=== PATIENT | male | born 1960 | race Caucasian/White ===

== ENCOUNTER → 2016-06-12 | Outpatient (CLI) | payer BC ==
--- NOTE | 2016-06-12 10:44 | CT ---
EXAMINATION TYPE: CT ChestAbdPelvis w con DATE OF EXAM: 06/12/2016 9:15 AM COMPARISON: CT CAP December 13, 2015 HISTORY: Patient has no complaints at time of service. Follow up study for known renal CA. CT DLP: 2014 mGycm. Automated Exposure Control for Dose Reduction was Utilized. CONTRAST: CT scan of the thorax, abdomen and pelvis is performed with oral and with IV Contrast, patient inject ed with 100 mL of Omnipaque 300. FINDINGS: LUNGS: There is a cluster of ill-defined nodular opacities in the right lower lobe seen best on axial images 33 through 42. Consider infectious process, atypical infection is in differential. Left lung remains clear. Some scattered micronodules are redemonstrated bilaterally including predominantly ca lcified nodules near axial image 30 and 31 in the right lung anteriorly. There is no pleural effusion or pneumothorax seen. The tracheobronchial tree is patent. MEDIASTINUM: There are no greater than 1 cm hilar or mediastinal lymph nodes. There are prominent but subcentimeter thoracic lymph nodes redemonstrated. No cardiomegaly is present. There is tiny pericar dial effusion anteriorly and inferiorly redemonstrated. Some coronary artery calcification in the LA D is seen. OTHER: No additional significant abnormality is seen. LIVER/GB: No significant abnormality is appreciated. PANCREAS: No significant abnormality is seen. SPLEEN: No significant abnormality is seen. ADRENALS: No significant abnormality is seen. KIDNEYS: No significant abnormality is seen. BOWEL: Oral contrast only reaches level of the mid ileum. There is distal colectomy with left lower q uadrant colostomy redemonstrated. Small fat-containing parastomal hernia remains present. Normal-appe aring appendix is seen from cecum. GENITAL ORGANS: No gross abnormality seen. LYMPH NODES: No greater than 1cm abdominal or pelvic lymph nodes are appreciated. OSSEOUS STRUCTURES: Multilevel spurring in thoracic spine is again seen. OTHER: There is persistent small to moderate sized fat-containing left inguinal hernia. IMPRESSION: 1. New area of ill-defined nodular opacities right lower lobe is present, consider acute infectious p rocess including atypical infections. Clinical correlation advised. Otherwise no significant new find ing is seen from prior exam. No obvious new mass or adenopathy is seen to suggest neoplastic recurren ce.
== END | disposition home or self-care (01) ==
LOC: RADCTMAIN 08:48
PROVIDERS: ATTEND Internal Medicine Hematology & Oncology
DX: C20 Malignant neoplasm of rectum (principal); R91.8 Other nonspecific abnormal finding of lung field
CPT/HCPCS: 71260; 74177; Q9967

== ENCOUNTER → 2016-12-11 | Outpatient (CLI) | payer BC ==
--- NOTE | 2016-12-11 16:49 | CT ---
EXAMINATION TYPE: CT ChestAbdPelvis w con DATE OF EXAM: 12/11/2016 COMPARISON: 06/12/2016 HISTORY: Patient has no complaints at time of service. Follow up study for known rectal CA. CT DLP: 1895 mGycm Automated exposure control for dose reduction was used. CONTRAST: CT scan of the chest, abdomen and pelvis is performed with Oral Contrast and with IV Contrast, patien t injected with 100 mL of Omnipaque 300. FINDINGS: The lungs are clear of infiltrate. There is no evidence of a pulmonary mass. There are small calcifie d granulomata in both lungs. There is no pleural effusion. There is no mediastinal adenopathy. There are no hilar masses. There is mild ectasia of the ascending aorta measures 3.6 cm. There is no eviden ce of dissection. There is no pericardial effusion. There is no pleural effusion. Liver spleen pancreas appear normal. Gallbladder appears normal. Bile ducts are not dilated. There is no adrenal mass. Kidneys show satisfactory contrast opacification. There is no hydronephrosis. Appen faviola appears normal. There is a colostomy in the left mid abdomen. There is a parastomal hernia that c ontains omental fat. This measures 3 cm. I see no intestinal wall thickening. There are no dilated lo ops. There is no ascites. Bladder distends smoothly. There is no pelvic mass. I see no bony destructive process. IMPRESSION: There is mild 3 cm parastomal hernia that contains fat. Sigmoid colostomy. No evidence of recurrent tumor. No adverse change compared to old exam. There is clearing of is minimal infiltrate in the left upper lobe compared to old exam.
== END | disposition home or self-care (01) ==
LOC: RADCTMAIN 15:54
PROVIDERS: ATTEND Internal Medicine Hematology & Oncology
DX: C20 Malignant neoplasm of rectum (principal); K43.5 Parastomal hernia without obstruction or gangrene
CPT/HCPCS: 71260; 74177; Q9967

== ENCOUNTER 2017-06-11 07:27 | Day surgery (SDC) | payer BC ==
[2017-06-07 11:20] VITALS: BMI 29.6
[~2017-06-11 07:27] MED LIST: LACTATED RINGERS 1,000 ML IV SCH
[2017-06-11 07:50] VITALS: RESP 16; TEMP 98.4
[2017-06-11] MEDS ORDERED: LIDOCAINE 1% 20 ML VIAL (10MG/ML) FOR IV START INTRADERMA ONE (07:53)
[2017-06-11 07:56] LABS: Glucose,Whole Blood 126 mg/dL (75-99)
[2017-06-11] MEDS ORDERED: PROPOFOL 10 MG/ML 20 ML VIAL IV ONE (08:25)
[2017-06-11] MEDS ORDERED: LIDOCAINE 1% INJ 10MG/ML (20 ML MDV) ONE (08:25)
[2017-06-11 09:06] VITALS: BP 116/72; PULSE 80
--- NOTE | 2017-06-11 09:11 | P.PCN ---
Date of Procedure: 06/11/17 Procedure(s) Performed: Procedure: Colonoscopy through colostomy site and polypectomy. Preoperative diagnosis: History of rectal cancer and history of polyps. Postoperative diagnosis: Sigmoid polyp snared but no other polyps or cancer. Preparation: HalfLytely prep. Sedation: Was provided by anesthesia. Brief clinical history: The patient is a 56-year-old male who in March 2012 underwent colonoscopy for rectal bleeding and was found to have large ulcerated rectal mass consistent with cancer that proved to be adenocarcinoma. He also had tubular adenomas removed from the right side. The patient underwent surgery with placement of permanent colostomy and he received adjuvant therapy. On his last colonoscopy in January 2014, he had a hepatic flexure polyp which was snared and proved to be tubular adenoma. This evaluation is for surveillance. The patient has no abdominal complaints, bleeding or anemia. Procedure: With the patient in the supine position and after informed consent and adequate sedation I inspected the colostomy site and it appeared healthy. I then passed the Olympus CFQ 160L videocolonoscope through the ostomy site and advanced it under direct vision without difficulty all the way to the cecum. There was a benign-appearing polyp in the sigmoid around 35 cm from the ostomy site measuring between 1-2 cm which I snared and retrieved by suction. No other polyps or tumors were seen. The mucosa appeared healthy. The patient tolerated the procedure well and did not have any immediate complications. Plan: The patient was reassured. I suggested that we repeat this exam in 2-3 years based on the pathology results. He will follow up with you as planned.
== END 2017-06-11 09:35 | disposition home or self-care (01) ==
LOC: ORWHC2ENDO 07:27
DX: Z12.11 Encounter for screening for malignant neoplasm of colon (principal); D12.5 Benign neoplasm of sigmoid colon; Z93.3 Colostomy status; Z85.048 Personal history of other malignant neoplasm of rectum, rectosigmoid junction, and anus; Z86.010 Personal history of colon polyps; E78.5 Hyperlipidemia, unspecified; E11.9 Type 2 diabetes mellitus without complications; Z79.84 Long term (current) use of oral hypoglycemic drugs; Z79.51 Long term (current) use of inhaled steroids; Z79.899 Other long term (current) drug therapy
CPT/HCPCS: 88305; 44394; J2001; J2704

== ENCOUNTER → 2017-06-18 | Outpatient (CLI) | payer BC ==
[2017-06-18 08:58] LABS: Blood Urea Nitrogen 23 mg/dL (9-20)
--- NOTE | 2017-06-18 10:16 | CT ---
EXAMINATION TYPE: CT ChestAbdPelvis w con DATE OF EXAM: 06/18/2017 COMPARISON: 12/11/2016 and 12/13/2015 HISTORY: 56-year-old male follow-up Rectal cancer TECHNIQUE: Contiguous axial scanning of the chest, abdomen, and pelvis performed with IV Contrast, pa tient injected with 100 mL of Omnipaque 300. Delayed images through the kidneys were obtained. Ansari l/sagittal reconstructions performed. CT DLP: 1345.20 mGycm Automated exposure control for dose reduction was used. FINDINGS: Chest: Heart normal size without pericardial effusion. Mild coronary vessel calcifications are present. Ascending aorta borderline ectatic at 3.5 cm. Conventional arch vessel branching anatomy. Unchanged nonenlarged scattered mediastinal lymph nodes. Tiny calcified right hilar lymph nodes morgan tible with prior granulomatous disease. Scattered calcified granulomas within the lungs. Additional scattered noncalcified pulmonary nodules are also unchanged compatible with a benign etiology. No consolidation or pleural effusion. ABDOMEN: No focal liver lesion or biliary ductal dilatation. Portal venous system is patent. Gallbladder, adrenal glands, kidneys, spleen, and pancreas appear within normal limits. No dilated small bowel, free fluid, or free air. Normal appendix. Scattered nonenlarged mesenteric lymph nodes are unchanged as is the patient's left sided sigmoid col ostomy with fat-containing 4 cm wide parastomal hernia and distal colonic resection. Pelvis: Bladder is urine distended. Pelvic phleboliths. Unchanged slight asymmetric thickening along the left floor of the pelvis suggests scarring. Fat-containing indirect left inguinal hernia redemonstrated. No abnormal fluid collection in the pelvis or pelvic lymphadenopathy seen. Bones: Endplate spondylosis mid to lower thoracic spine. No osseous destructive process. IMPRESSION: 1. LEFT-SIDED SIGMOID COLOSTOMY WITH DISTAL COLON RESECTION. NO EVIDENCE FOR RECURRENCE OR METASTATIC DISEASE. 2. STABLE SMALL 4 CM FATTY PARASTOMAL HERNIA. 3. SCATTERED CALCIFIED AND NONCALCIFIED PULMONARY NODULES ARE UNCHANGED AND BENIGN, LIKELY RELATING T O PRIOR GRANULOMATOUS DISEASE. 4. FAT-CONTAINING LEFT-SIDED INGUINAL HERNIA.
== END | disposition home or self-care (01) ==
LOC: RADCTMAIN 08:15
PROVIDERS: ATTEND Internal Medicine Hematology & Oncology
DX: C20 Malignant neoplasm of rectum (principal); K43.5 Parastomal hernia without obstruction or gangrene; K40.90 Unilateral inguinal hernia, without obstruction or gangrene, not specified as recurrent; R91.8 Other nonspecific abnormal finding of lung field
CPT/HCPCS: 82565; 84520; 71260; 74177; 36415; Q9967

== ENCOUNTER → 2017-12-06 | Outpatient (CLI) | payer BC ==
--- NOTE | 2017-12-06 14:10 | CT ---
EXAMINATION TYPE: CT ChestAbdPelvis w con DATE OF EXAM: 12/06/2017 COMPARISON: 06/18/2017 and exams dating back to 11/30/2014. HISTORY: Follow up to rectal CA CT DLP: 1429.5 mGycm. Automated Exposure Control for Dose Reduction was Utilized. CONTRAST: CT scan of the thorax, abdomen and pelvis is performed with IV Contrast, patient injected with 100 mL of Isovue 300. FINDINGS: LUNGS: There is redemonstration of multiple similar-appearing scattered calcified and noncalcified pu lmonary nodules. The noncalcified nodules are marked on the images and again stable also representing a benign etiology. No new pulmonary mass or consolidation is seen. There is no pleural effusion or p neumothorax seen. The tracheobronchial tree is patent. MEDIASTINUM: There are no greater than 1 cm hilar or mediastinal lymph nodes. No pericardial effusi on is seen. Moderate coronary artery calcifications are noted. Calcified mediastinal lymph nodes repr esent prior granulomatous disease. Ascending thoracic aorta is within normal limits of size measuring 3.0 cm. LIVER/GB: There is an arterially enhancing 1.0 cm lesion within segment 6 of the liver on series 3 im age 61 in the subcapsular region. Additionally there is a 6 mm arterially enhancing mass in segment I Vb of the liver on image 61 of series 3. These are retrospectively seen on the examination of 5 representing flash filling hemangiomas. Overall there is low-attenuation of the hepatic parenchyma suggesting early hepatocellular disease. Prominence of the common bile duct insertion of the ampulla of Vater is unchanged from the prior on series 3 image 68. Gallbladder is slightly contracted but unr emarkable. PANCREAS: Mild pancreatic parenchymal atrophy is noted. No ductal dilatation. SPLEEN: No significant abnormality is seen. No splenomegaly. ADRENALS: No nodularity or thickening. KIDNEYS: Kidneys enhance and excrete symmetrically without hydronephrosis or focal renal lesion. BOWEL: There is redemonstration of a left-sided colostomy without obstruction. Contrast is noted to e xtend to the prolapsed loops of small bowel within the pelvis. No colonic contrast is seen. There is likely reflux of the ileocecal valve due to incompetence as small bowel feces sign is seen throughout the nondilated distal ileum appendix is unremarkable. Fat filled parastomal hernia is unchanged. Pro bable posttreatment changes seen within the left presacral space as there is a minimally asymmetric t hickening, stable from prior. Left-sided fat filled inguinal hernia is again seen. GENITAL ORGANS: Heterogeneity of the prostate gland is noted. LYMPH NODES: No greater than 1cm abdominal or pelvic lymph nodes are appreciated. OSSEOUS STRUCTURES: Mild multilevel degenerative change with no new suspicious osseous lesion. IMPRESSION: No new evidence of metastatic disease within the chest, abdomen, or pelvis. Stable benign findings of the lungs and liver. Unchanged left colostomy and parastomal hernia. Stable left inguinal hernia.
== END ==
LOC: RADCTMAIN 11:16
PROVIDERS: ATTEND Internal Medicine Hematology & Oncology
DX: K43.5 Parastomal hernia without obstruction or gangrene (principal); K40.90 Unilateral inguinal hernia, without obstruction or gangrene, not specified as recurrent; C20 Malignant neoplasm of rectum; Z93.3 Colostomy status
CPT/HCPCS: 82565; 84520; 71260; 74177; 36415; Q9967

== ENCOUNTER → 2022-11-30 | Outpatient (CLI) | payer BC ==
--- NOTE | 2022-11-30 14:24 | US ---
EXAMINATION TYPE: US kidneys/renal and bladder DATE OF EXAM: 11/30/2022 COMPARISON: CT chest abdomen pelvis 12/06/2009 CLINICAL INDICATION: Male, 62 years old with history of N18.9 CHRONIC KIDNEY DISEASE, UNSPECIFIED; Ab normal labs. EXAM MEASUREMENTS: Right Kidney: 10.7 x 4.8 x 5.8 cm Left Kidney: 10.5 x 4.3 x 5.9 cm Right Kidney: No hydronephrosis or masses seen Left Kidney: No hydronephrosis or masses seen Bladder: distended, anechoic Bilateral Jets seen There is no evidence for hydronephrosis at this point in time. No nephrolithiasis is seen. No nima s are identified. Corticomedullary differentiation is maintained. The urinary bladder is anechoic. Bilateral ureteral jets are seen. IMPRESSION: No hydronephrosis or nephrolithiasis.
== END | disposition home or self-care (01) ==
LOC: RADUSWWP 13:36
PROVIDERS: ATTEND Internal Medicine Geriatric Medicine
DX: N18.9 Chronic kidney disease, unspecified (principal)
CPT/HCPCS: 76770

== ENCOUNTER → 2024-07-23 | Day surgery (SDC) | payer BC ==
[2024-07-18 14:11] VITALS: BMI 31.9
[~2024-07-23] MED LIST changes: +HYDROmorphone 0.5 MG/0.5 ML SYRINGE IVP PRN; -LACTATED RINGERS 1,000 ML IV SCH; +MIDAZOLAM 2 MG/2 ML VIAL ONE; +TETRACAINE 0.5% OPHTH (PF) DROPS 4 ML BTL OP PRN; +fentaNYL (PF) 50 MCG/ML 2 ML AMP ONE
[2024-07-23] MEDS: IV FLUID CONTINUATION 1,000 ML IV ONE (07:22)
[2024-07-23] MEDS: DEXAMETHASONE SOD PHOSPHATE 4 MG/ML 1 ML VIAL IV ONE (07:29)
[2024-07-23] MEDS: ONDANSETRON 4 MG/2 ML VIAL IVP ONE (07:30)
[2024-07-23] MEDS: LACTATED RINGERS 1,000 ML IV SCH (07:37)
[2024-07-23 07:38] LABS: Glucose,Whole Blood 96 mg/dL (70-110)
[2024-07-23 07:40] VITALS: TEMP 97.4
[2024-07-23] MEDS: CYCLOPENTOLATE 1% OPHTH SOLN 2 ML BTL OP PRN (07:41)
[2024-07-23] MEDS: PHENYLEPHRINE 2.5% OPHTH DRP 2ML OP PRN (07:44)
[2024-07-23] MEDS: EPINEPHrine (PF) 0.3 ML in BALANCED SALT IRRIG SOLN COMB2 500 ML IRRIGATION ONE (08:14)
[2024-07-23] MEDS: BALANCED SALT IRRIG SOLN COMB2 15 ML IRRIG.SOLN INTRAOCULA ONE (08:15)
[2024-07-23] MEDS: HYALURONATE SODIUM INTRAOCULAR 1 EACH SYRINGE (12MG/ML) INTRAOCULA ONE (08:15)
[2024-07-23] MEDS: MOXIFLOXACIN HCL 0.5% DROPS 3 ML BTL OP PRN (08:16)
[2024-07-23] MEDS: LIDOCAINE 1% (PF) 10MG/ML VIAL MISCELLANE ONE (08:16)
[2024-07-23] MEDS: TIMOLOL 0.5% OPHTH DROPS 5 ML BTL OP PRN (08:16)
--- NOTE | 2024-07-23 08:45 | P.OP ---
Date of Procedure: 07/23/24 Preoperative Diagnosis: NS & reg astig Postoperative Diagnosis: same Procedure(s) Performed: PIOL< OD Implants: [id number] 17.00 Anesthesia: MAC Surgeon: José Antonio Lu Pathology: none sent Condition: stable Disposition: same day Indications for Procedure: blurry vision Operative Findings: no complications
[2024-07-23 09:07] VITALS: RESP 14
[2024-07-23 09:17] VITALS: BP 167/87; PULSE 69
--- NOTE | 2024-07-23 22:05 | OP ---
OPERATIVE REPORT DATE OF SERVICE : 07/23/2024 PROCEDURES PERFORMED: Phacoemulsification of cataract and intraocular lens implantation of the right eye. PREOPERATIVE DIAGNOSES: Nuclear sclerosis and regular astigmatism. POSTOPERATIVE DIAGNOSES: Nuclear sclerosis and regular astigmatism. ANESTHESIA: Topical. ESTIMATED BLOOD LOSS: None. SPECIMENS TAKEN: None. NARRATIVE: After obtaining the appropriate consent, the patient was brought to the operating room. There, he was placed under cardiac monitoring, prepped and draped in the usual sterile manner. He was approached from his right temporal side, and at the 11 o'clock position, an MVR blade was used to create a paracentesis port. Through this opening, 1% Xylocaine MPF 50:50 mix with balanced salt solution was injected into the anterior chamber. This was followed by stabilization of the anterior chamber with Amvisc. Using a [employer] axis marker, the axis of 6 degrees was identified and marked with the gentian yanira, and at the 9 o'clock position, a 2.5 mm keratome was used to create a self-sealing corneal flap incision. Through this opening, a cystotome was introduced to begin a continuous tear capsulorrhexis, which was completed using the Utrata forceps. Hydrodissection and hydrodelineation of the lens were accomplished with balanced salt solution. Phacoemulsification lens utilizing phaco chop was accomplished in 15.86 seconds at 14.3% power. Additional Xylocaine MPF was instilled into the anterior chamber. This was followed by removal of the remaining cortical material under irrigation and aspiration as well as careful polishing of the capsule in the capsule vacuum mode. Additional Amvisc was then used to stabilize the capsular bag and an [employer] Vivity, model CCWET3, 17 diopter posterior chamber intraocular lens was injected into the capsular bag without difficulty. The remaining viscoelastic was removed from in and around the intraocular lens and the lens was then oriented at the 6- degree axis caren previously placed on the patient's cornea. The eye was then brought to normal intraocular pressures through the paracentesis port. He received 2 drops of 0.5% timolol followed by 2 drops of 0.5% moxifloxacin. He was then lightly patched and shielded in the usual manner. There were no complications from the procedure. He tolerated the procedure well and was returned to the outpatient recovery in good condition. MMODL / IJN: [id number] /
== END | disposition home or self-care (01) ==
LOC: OR 06:48
PROVIDERS: ATTEND Ophthalmology
DX: H25.11 Age-related nuclear cataract, right eye (principal); H25.12 Age-related nuclear cataract, left eye; H52.223 Regular astigmatism, bilateral; H52.13 Myopia, bilateral; H52.4 Presbyopia; I10 Essential (primary) hypertension; E78.5 Hyperlipidemia, unspecified; E11.9 Type 2 diabetes mellitus without complications; Z79.02 Long term (current) use of antithrombotics/antiplatelets; Z79.899 Other long term (current) drug therapy
CPT/HCPCS: 66984; J2250; J0171; J3010; J2003

== ENCOUNTER 2024-08-13 11:07 | Day surgery (SDC) | payer BC ==
[2024-08-05 09:12] VITALS: BMI 33.4
[~2024-08-13 11:07] MED LIST changes: +CYCLOPENTOLATE 1% OPHTH SOLN 2 ML BTL OP PRN; -HYDROmorphone 0.5 MG/0.5 ML SYRINGE IVP PRN; -MIDAZOLAM 2 MG/2 ML VIAL ONE; +MOXIFLOXACIN HCL 0.5% DROPS 3 ML BTL OP PRN; +PHENYLEPHRINE 2.5% OPHTH DRP 2ML OP PRN; +TIMOLOL 0.5% OPHTH DROPS 5 ML BTL OP PRN; -fentaNYL (PF) 50 MCG/ML 2 ML AMP ONE
[2024-08-13] MEDS ORDERED: LACTATED RINGERS 1,000 ML IV SCH (11:32)
[2024-08-13] MEDS: CYCLOPENTOLATE 1% OPHTH SOLN 2 ML BTL OP PRN (11:35)
[2024-08-13] MEDS: PHENYLEPHRINE 2.5% OPHTH DRP 2ML OP PRN (11:44)
[2024-08-13] MEDS: LIDOCAINE 1% (10MG/ML) FOR IV START INTRADERMA STA (11:45)
[2024-08-13] MEDS: LACTATED RINGERS 1,000 ML IV SCH (11:45)
[2024-08-13] MEDS: IV FLUID CONTINUATION 1,000 ML IV ONE (11:45)
[2024-08-13 12:03] VITALS: RESP 16; TEMP 97.5
[2024-08-13 12:08] LABS: Glucose,Whole Blood 91 mg/dL (70-110)
[2024-08-13] MEDS ORDERED: MIDAZOLAM 2 MG/2 ML VIAL ONE (12:15)
[2024-08-13] MEDS: EPINEPHrine (PF) 0.3 ML in BALANCED SALT IRRIG SOLN COMB2 500 ML IRRIGATION ONE (12:20)
[2024-08-13] MEDS: LIDOCAINE 1% (PF) 10MG/ML VIAL INTRAARTIC ONE (12:33)
[2024-08-13] MEDS: BALANCED SALT IRRIG SOLN COMB2 15 ML IRRIG.SOLN INTRAOCULA ONE (12:33)
[2024-08-13] MEDS: HYALURONATE SODIUM INTRAOCULAR 1 EACH SYRINGE (12MG/ML) INTRAOCULA ONE (12:33)
[2024-08-13] MEDS: MOXIFLOXACIN HCL 0.5% DROPS 3 ML BTL OP PRN (12:35)
[2024-08-13] MEDS: TIMOLOL 0.5% OPHTH DROPS 5 ML BTL OP PRN (12:35)
--- NOTE | 2024-08-13 12:55 | P.OP ---
Date of Procedure: 08/13/24 Preoperative Diagnosis: NS & reg astig Postoperative Diagnosis: same Procedure(s) Performed: PIOL, OS Implants: [id number] 18.50 Anesthesia: MAC Surgeon: José Antonio Lu Pathology: none sent Condition: stable Disposition: same day Indications for Procedure: blurry vision Operative Findings: no complications
[2024-08-13 13:18] VITALS: BP 163/81; PULSE 65
--- NOTE | 2024-08-13 23:41 | OP ---
OPERATIVE REPORT DATE OF SERVICE : 08/13/2024 PROCEDURES: Phacoemulsification of cataract and intraocular lens implant of the left eye. PREOPERATIVE DIAGNOSES: Nuclear sclerosis and regular astigmatism. POSTOPERATIVE DIAGNOSIS: Nuclear sclerosis and regular astigmatism. ANESTHESIA: Topical. ESTIMATED BLOOD LOSS: None. SPECIMEN TAKEN: None. NARRATIVE: After obtaining the appropriate consent, the patient was brought into the operating room. There, he was placed under cardiac monitoring, prepped and draped in the usual sterile manner. He was approached from his left temporal side. Using previously acquired corneal topography information, the axis of 8 degrees was identified and marked with a [facility] axis marker. At the 5 o'clock position, a paracentesis was created with an MVR blade and through this opening, 1% Xylocaine MPF 50:50 mix with balanced salt solution was injected into the anterior chamber. This was followed by stabilization of the anterior chamber with Amvisc. At the 2:30 position, a 2.5 mm keratome was used to create a self-sealing corneal flap incision. Through this opening, a cystotome was introduced to begin a continuous tear capsulorrhexis, which was then completed using the Utrata forceps. Hydrodissection and hydrodelineation of the lens were accomplished with balanced salt solution. Phacoemulsification of the lens utilizing phaco chop was accomplished in 14.51 seconds at 12% power. Additional Xylocaine MPF was instilled into the anterior chamber. This was followed by removal of the remaining cortical material under irrigation and aspiration as well as careful polishing of the posterior capsule in the capsule vacuum mode. Additional Amvisc was then used to stabilize the capsular bag and an [employer] Vivity, model CCWET3, 18.0 diopter posterior chamber intraocular lens was injected into the capsular bag without difficulty. All remaining viscoelastic was removed from in and around the intraocular lens and the lens was then aligned at the 8 degree axis caren previously identified and marked on the patient's cornea. The wounds were confirmed watertight and the eye was then brought to normal intraocular pressure through the paracentesis port with balanced salt solution. He then received 2 drops of 0.5% timolol followed by 2 drops of 0.5% moxifloxacin. He was then lightly patched and shielded in the usual manner. There were no complications from the procedure. He tolerated the procedure well and was returned to the outpatient recovery in good condition. MMODL / IJN: [id number] /
== END 2024-08-13 13:39 | disposition home or self-care (01) ==
LOC: OR 11:07
PROVIDERS: ATTEND Ophthalmology
DX: H52.222 Regular astigmatism, left eye (principal); H25.12 Age-related nuclear cataract, left eye; E11.9 Type 2 diabetes mellitus without complications; I10 Essential (primary) hypertension; E78.5 Hyperlipidemia, unspecified
CPT/HCPCS: 66984; V2787; C1780; J2250; J0171; J2003